=== PATIENT | female | born 1960 | race Caucasian/White ===

== ENCOUNTER 2017-05-31 11:22 | Emergency (ER) | payer BC ==
[2017-05-31 12:32] LABS: HEMATOCRIT 36.6 % (37.0-47.0); HEMOGLOBIN 12.5 g/dl (12.0-16.0); IMMATURE GRANULOCYTES 0.6 % (0.0-1.0); MEAN CORPUSCULAR HGB 34.2 pG CALC (26.0-32.0); MEAN CORPUSCULAR HGB CONC 34.2 g/L CALC (32.0-36.0); NEUT# 5.42 thou/uL (2.00-7.15); RED BLOOD COUNT 3.66 mill/uL (4.20-5.60); RED CELL DISTRI WIDTH 13.5 % (11.5-15.5)
[2017-05-31 12:39] LABS: PROTHROMBIN TIME 10.6 SECONDS (9.0-12.5)
[2017-05-31 12:43] LABS: ALBUMIN 4.2 g/dL (3.2-5.0); ANION GAP 21 (6-22 (CALC)); BILIRUBIN, TOTAL 0.4 mg/dL (0.0-1.4); BUN 13 mg/dL (7-17); BUN/CREATININE RATIO 32 (12-20 (CALC)); CARBON DIOXIDE 25 mmol/l (22-30); CHLORIDE 96 mmol/l (95-108); CREATININE 0.4 mg/dL (0.5-1.0); ETHYL ALCOHOL 207 mg/dl (0-30); GFR > 60 ML/MIN (>=60 (CALC)); GFR FOR AFR.AMER. > 60 ML/MIN (>=60 (CALC)); POTASSIUM 3.7 mmol/l (3.5-5.1); SGPT/ALT 52 u/l (9-52); SODIUM 138 mmol/l (137-146); TOTAL PROTEIN 7.2 g/dL (6.3-8.2)
[2017-05-31 12:46] LABS: ALKALINE PHOSPHATASE 100 u/l (38-126); SGOT/AST 45 u/l (14-36)
[2017-05-31 12:54] LABS: BARBITURATES NEGATIVE (NEGATIVE); COCAINE NEGATIVE (NEGATIVE); METHADONE NEGATIVE (NEGATIVE); OXCYCODONE NEGATIVE (NEGATIVE); TETRAHYDROCANNABIONOL NEGATIVE (NEGATIVE); TRICYLIC ANTIDEPRESSANTS NEGATIVE (NEGATIVE)
[2017-05-31 12:54] LABS: URINE BILIRUBIN - DIPSTICK NEGATIVE (NEGATIVE); URINE BLOOD DIPSTICK TRACE-INTACT (NEGATIVE); URINE CLARITY CLEAR; URINE COLOR YELLOW; URINE GLUCOSE - DIPSTICK NEGATIVE (NEGATIVE); URINE KETONE TRACE mg/dL (NEGATIVE); URINE LEUK ESTERASE NEGATIVE (NEGATIVE); URINE NITRITE - DIPSTICK NEGATIVE (Negative); URINE PROTEIN - DIPSTICK NEGATIVE (NEG-TRACE); URINE SPECIFIC GRAVITY <=1.005; URINE UROBILINOGEN - DIPSTICK 0.2 E.U./dL (0.2)
[2017-05-31 14:37] VITALS: BP 148/82
== END 2017-05-31 14:54 | DRG 880 ==
LOC: ED 11:22
PROVIDERS: Emergency Medicine
DX: R45.851 Suicidal ideations (principal); F10.229 Alcohol dependence with intoxication, unspecified
CPT/HCPCS: J2060

== ENCOUNTER 2018-04-19 13:25 | Emergency (ER) | payer BC ==
[~2018-04-19] VITALS: Ht 160 cm; Wt 74.0 kg
[2018-04-19] MEDS ORDERED: MEMANTINE HCL10 MG PO (13:39)
[2018-04-19] MEDS ORDERED: DONEPEZIL10 MG PO (13:39)
[2018-04-19] MEDS ORDERED: OLANZAPINE5 MG PO (13:40)
[2018-04-19 14:55] LABS: HEMATOCRIT 36.1 % (37.0-47.0); HEMOGLOBIN 11.3 g/dl (12.0-16.0); IMMATURE GRANULOCYTES 0.9 % (0.0-5.0); MEAN CORPUSCULAR HGB 28.7 pG CALC (26.0-32.0); MEAN CORPUSCULAR HGB CONC 31.3 g/L CALC (32.0-36.0); NEUT# 11.5 thou/uL (2.00-7.15); RED BLOOD COUNT 3.94 mill/uL (4.20-5.60); RED CELL DISTRI WIDTH 14.8 % (11.5-15.5)
[2018-04-19 15:10] LABS: MEAN CELL VOLUME 91.6 fL CALC (80.0-100.0)
[2018-04-19 15:25] LABS: ALBUMIN 3.9 g/dL (3.2-5.0); ALKALINE PHOSPHATASE 69 u/l (38-126); ANION GAP 14 (6-22 (CALC)); BILIRUBIN, TOTAL 0.3 mg/dL (0.0-1.4); BUN 5 mg/dL (7-17); BUN/CREATININE RATIO 10 (12-20 (CALC)); CARBON DIOXIDE 28 mmol/l (22-30); CHLORIDE 101 mmol/l (95-108); CREATININE 0.5 mg/dL (0.5-1.0); GFR > 60 ML/MIN (>=60 (CALC)); GFR FOR AFR.AMER. > 60 ML/MIN (>=60 (CALC)); POTASSIUM 3.6 mmol/l (3.5-5.1); SGOT/AST 35 u/l (14-36); SODIUM 140 mmol/l (137-146); TOTAL PROTEIN 6.7 g/dL (6.3-8.2)
[2018-04-19] MEDS ORDERED: AMOX/K CLAV875 M1 PO ×2 (17:21→18:06)
[2018-04-19 18:13] VITALS: BP 145/89
== END 2018-04-19 18:21 | disposition left against medical advice (07) | DRG 156 ==
LOC: ED 13:25
PROVIDERS: Emergency Medicine
DX: K11.20 Sialoadenitis, unspecified (principal); F17.210 Nicotine dependence, cigarettes, uncomplicated; Z91.19 Patient's noncompliance with other medical treatment and regimen